=== PATIENT | female | born 1955 | race African-American/Black ===

== ENCOUNTER 2016-07-03 12:37 | Emergency (ER) | payer OTHER ==
[2016-07-03 12:55] VITALS: BP 143/84; PULSE 75; TEMP 97.3; BMI 30.2
--- NOTE | 2016-07-03 13:27 | PDOC ---
History of Present Illness - General Chief Complaint: Tremors Stated Complaint: SOB, TREMORS (PFT TEST) Time Seen by Provider: 07/03/16 13:09 History Source: Patient Exam Limitations: No Limitations - History of Present Illness Initial Comments: 07/03/16 13:24 60 yr female sent from pulmonary function tests for feeling jittery after having albuterol nebulizer during exam. Pt states she has never had that medication before. Pt feels fine now denies any complaints. Timing/Duration: momentarily Past History - Past Medical History Allergies/Adverse Reactions: Allergies Allergy/AdvReac Type Severity Reaction Status Date / Time No Known Allergies Allergy Verified 07/03/16 12:51 Cardiac Disorders: Yes (ENLARGED HEART) Diabetes: Yes (BORDERLINE) HTN: Yes - Surgical History Abdominal Surgery: Yes (DOUBLE HERNIA) Cholecystectomy: Yes - Family Disease History Comment:: 07/03/16 13:25 none - Immunization History Immunization Up to Date: Yes (NO FLU) - Psycho/Social/Smoking Cessation Hx Anxiety: No Suicidal Ideation: No Smoking History: Former smoker Have you smoked in the past 12 months: No Information on smoking cessation initiated: No Hx Alcohol Use: No Drug/Substance Use Hx: No Substance Use Type: None Review of Systems - Review of Systems Able to Perform ROS?: Yes Is the patient limited Amharic proficient: No Constitutional: No: Symptoms Reported HEENTM: No: Symptoms Reported Respiratory: Yes: Symptoms reported *Physical Exam - Vital Signs Last Vital Signs Temp Pulse Resp BP Pulse Ox 97.3 F L 75 20 143/84 100 07/03/16 12:52 07/03/16 12:52 07/03/16 12:52 07/03/16 12:52 07/03/16 12:52 - Physical Exam General Appearance: Yes: Nourished, Appropriately Dressed HEENT: positive: EOMI, LEO, Normal ENT Inspection, TMs Normal, Pharynx Normal Neck: positive: Supple Respiratory/Chest: positive: Lungs Clear, Normal Breath Sounds Cardiovascular: positive: Regular Rhythm, Regular Rate. negative: Tachycardia Gastrointestinal/Abdominal: positive: Normal Bowel Sounds, Soft Musculoskeletal: positive: Normal Inspection Extremity: positive: Normal Capillary Refill, Normal Inspection, Normal Range of Motion Integumentary: positive: Normal Color, Dry, Warm Neurologic: positive: Fully Oriented, Alert, Normal Mood/Affect, Normal Response , Motor Strength 5/5 Medical Decision Making - Medical Decision Making 07/03/16 13:26 cc: nervousness, anxious after having albuterol treatment approximately 45 minutes ago pt states she feels no symptoms now no chest pain or diff breathing *DC/Admit/Observation/Transfer Diagnosis at time of Disposition: Medication side effect Qualifiers: Encounter type: initial encounter Qualified Code(s): T88.7XXA - Unspecified adverse effect of drug or medicament, initial encounter - Discharge Dispostion Disposition: HOME Condition at time of disposition: Good - Patient Instructions Additional Instructions: follow with your doctor for any worsening symptoms or complaints drink plenaty of water to stay hydrated
== END 2016-07-03 13:33 | disposition home or self-care (01) ==
LOC: JERFT 12:37
DX: G25.1 Drug-induced tremor (principal); T48.6X5A Adverse effect of antiasthmatics, initial encounter; Y92.538 Other ambulatory health services establishments as the place of occurrence of the external cause
CPT/HCPCS: 99281-25